=== PATIENT | male | born 1995 | race Caucasian/White ===

== ENCOUNTER 2022-03-12 21:28 | Emergency (ER) | payer SELFPAY ==
[~2022-03-12] VITALS: Ht 177.8 cm; Wt 90.7 kg
--- NOTE | 2022-03-12 22:07 | NUR ---
Pt to ER w/ c/o skin discoloration/scarring s/p "insect bite" in [place]. Pt now has brown discolored streaks to left side of abdomen. Pt denies itching or pain. Pt states area was initially red and itching. Denies fevers, body aches or chills. Respirations even and unlabored.
[2022-03-12 22:08] VITALS: BP_SYST 140
[2022-03-13 00:47] LABS: EOSINOPHILS # (AUTO) 0.2 K/uL (0.0-0.4); LYMPHOCYTES # (AUTO) 2.6 K/uL (1.0-5.5)
[2022-03-13 00:50] LABS: BASOPHILS % (AUTO) 0.7 % (0.0-2.0); EOSINOPHILS % (AUTO) 2.5 % (0.0-4.0); HEMATOCRIT 38.6 % (36-54); HEMOGLOBIN 13.6 g/dL (14.0-18.0); LYMPHOCYTES % (AUTO) 36.9 % (20.5-51.5); MEAN CORPUSCULAR HEMOGLOBIN 31 pg (27-31); MEAN CORPUSCULAR HGB CONC 35 % (32-36); MEAN CORPUSCULAR VOLUME 89 fL (79.0-98.0); MONOCYTES # (AUTO) 0.6 K/uL (0.0-1.0); MONOCYTES % (AUTO) 8.7 % (1.7-9.3); NEUTROPHILS # (AUTO) 3.7 K/uL (1.8-7.7); NEUTROPHILS % (AUTO) 51.2 % (40.0-70.0); PLATELET COUNT (AUTO) 206 K/uL (130-430); RED BLOOD CELL COUNT(AUTO) 4.33 MIL/uL (4.2-6.2); RED CELL DISTRIBUTION WIDTH 12.9 % (9.0-15.0); WHITE BLOOD COUNT (AUTO) 7.1 K/uL (4.8-10.8)
--- NOTE | 2022-03-13 01:20 | NUR ---
MD [place] assessing patient at this time
[2022-03-13 01:45] VITALS: BP_SYST 121
--- NOTE | 2022-03-13 01:45 | NUR ---
Patient given written and verbal discharge instructions and verbalizes understanding. ER MD discussed with patient the results and treatment provided. Patient in stable condition. ID arm band removed. Rx of given. Patient educated on pain management and to follow up with PMD. Pain Scale 0/10. Opportunity for questions provided and answered.
[2022-03-13 05:00] LABS: CREATININE 1.27 mg/dL (0.55-1.30); POTASSIUM 3.4 mmol/L (3.5-5.1)
== END 2022-03-13 01:45 | disposition home or self-care (01) ==
LOC: SED 21:28
DX: R21 Rash and other nonspecific skin eruption (principal); Z79.899 Other long term (current) drug therapy
CPT/HCPCS: 36415; 80048; 85025; 99283